=== PATIENT | male | born 1995 ===

== ENCOUNTER 2017-01-08 19:54 | Emergency (ER) | payer MEDICAID ==
[2017-01-08] MEDS ORDERED: Sodium Chloride 0.9% 1,000 ML IV ONE (20:42)
[2017-01-08] MEDS ORDERED: Sodium Chloride 0.9% 1,000 ML ONE (20:53)
[2017-01-08 20:57] LABS: BASO % 0.1 % (0.0-2.0); EOS # 0.1 K/uL (0.0-0.7); EOS % 0.8 % (0.0-4.0); HEMATOCRIT 44.7 % (35.0-51.0); LYMPH # 1.1 K/uL (1.0-4.3); LYMPH % 7.3 % (20.0-40.0); MEAN CELL VOLUME 87.1 fL (80.0-94.0); MEAN CORPUSCULAR HEMOGLOBIN 28.9 pg (27.0-31.0); MEAN CORPUSCULAR HGB CONC 33.1 g/dL (33.0-37.0); MEAN PLATELET VOLUME 8.6 fL (7.2-11.7); MONO # 0.9 K/uL (0.0-0.8); MONO % 5.8 % (0.0-10.0); PLATELET COUNT 231 K/uL (130-400); RED CELL DISTRIBUTION WIDTH 13.7 % (11.5-14.5); WHITE BLOOD COUNT 14.8 K/uL (4.8-10.8)
[2017-01-08 20:59] LABS: CHLORIDE 98 mmol/L (98-107); POTASSIUM 4.4 mmol/L (3.6-5.2); SODIUM 137 mmol/L (132-148)
[2017-01-08 21:01] LABS: BILIRUBIN,TOTAL 0.8 mg/dL (0.2-1.3); CARBON DIOXIDE 22 mmol/L (22-30); GFR AFRICAN-AMERICAN > 60
[2017-01-08 21:02] LABS: ALB/GLOB RATIO 1.5 (1.0-2.1); ALKALINE PHOSPHATASE 88 U/L (38-126); ALT/SGPT 27 U/L (21-72); AST/SGOT 40 U/L (17-59); BLOOD UREA NITROGEN 22 mg/dL (9-20); GLUCOSE,RANDOM 92 mg/dL (75-110); TOTAL PROTEIN 7.9 g/dL (6.3-8.3)
[2017-01-08 21:21] LABS: NEUTROPHIL 87 % (50-75); TOTAL CELLS COUNTED 100
--- NOTE | 2017-01-08 21:29 | C.PDOC ---
History Of Present Illness 21 y/o male presents to the ED with complains of abdominal cramping, vomiting and diarrhea since this afternoon. Pt states he ate eritrean food for lunch today and symptoms began soon after. Pt reports 3 episodes of vomiting and diarrhea. Pt currently has no abdominal pain or nausea. He denies fever, dysuria, hematuria, dysuria/hematuria. Patient denies PMHx. Time Seen by Provider: 01/08/17 20:24 Chief Complaint (Nursing): GI Problem History Per: Patient History/Exam Limitations: no limitations Onset/Duration Of Symptoms: Hrs Current Symptoms Are (Timing): Better Context: Food Severity: Mild Location Of Pain/Discomfort: Diffuse Radiation Of Pain To:: None Quality Of Discomfort: Cramping Associated Symptoms: Nausea, Vomiting, Diarrhea. denies: Fever, Chills, Urinary Symptoms Exacerbating Factors: Food Alleviating Factors: None Past Medical History Reviewed: Historical Data, Nursing Documentation, Vital Signs Vital Signs: Last Vital Signs Temp 98.7 F 01/08/17 22:22 Pulse 99 H 01/08/17 22:22 Resp 18 01/08/17 22:22 BP 138/76 01/08/17 22:22 Pulse Ox 100 01/08/17 22:22 - Medical History PMH: No Chronic Diseases Family History: States: No Known Family Hx - Social History Hx Alcohol Use: No Hx Substance Use: No Review Of Systems Except As Marked, All Systems Reviewed And Found Negative. Constitutional: Negative for: Fever, Chills Cardiovascular: Negative for: Chest Pain, Palpitations Respiratory: Negative for: Cough, Shortness of Breath Gastrointestinal: Positive for: Nausea, Vomiting, Abdominal Pain, Diarrhea Genitourinary: Negative for: Dysuria, Hematuria Skin: Negative for: Rash Physical Exam - Physical Exam Appears: Well, Non-toxic, No Acute Distress Skin: Warm, Dry, No Rash Head: Normacephalic Eye(s): bilateral: Normal Inspection Oral Mucosa: Moist Cardiovascular: Rhythm Regular Respiratory: Normal Breath Sounds, No Rales, No Rhonchi, No Wheezing Gastrointestinal/Abdominal: Normal Exam, Bowel Sounds, Soft, No Tenderness, No Guarding, No Rebound Extremity: Bilateral: Atraumatic Neurological/Psych: Oriented x3 ED Course And Treatment - Laboratory Results Result Diagrams: 01/08/17 20:51 01/08/17 20:51 O2 Sat by Pulse Oximetry: 98 (on room air) Pulse Ox Interpretation: Normal Progress Note: Plan: Blood work ordered and reviewed. Patient given IV NS bolus. Reevaluation Time: 22:10 Reassessment Condition: Improved (Patient reassessed, is resting comfortably, has no current pain/distress. On exam, abdomen is soft and nontender. Patient is requesting to be discharged home, was given Rxs for Zofran and Bentyl + work note. He was instructed to follow up with PMD/clinic in 1-2 days. He understands he should return to ED if symptoms worsen.) Disposition Counseled Patient/Family Regarding: Studies Performed, Diagnosis, Need For Followup, Rx Given - Disposition Referrals: Unruly Chapa Jr., MD [Medical Doctor] - Disposition: HOME/ ROUTINE Disposition Time: 22:10 Condition: STABLE Additional Instructions: SEGUIMIENTO CON SOSA MDICO EN 1-2 DAVIS USE MEDICAMENTOS WAYNE SE NECESITAN PARA LA NAUSEA Y EL CRAMPING INTESTINAL DEVUELVA A LA WINDY DE EMERGENCIA SI LOS SNTOMAS EMPEORARAN Prescriptions: Dicyclomine [Bentyl] 20 mg PO Q6 PRN #12 tab PRN Reason: ABDOMINAL CRAMPING Ondansetron [Zofran Odt] 4 mg PO Q8 PRN #10 odt PRN Reason: Nausea/Vomiting Instructions: Acute Nausea and Vomiting (ED) Forms: Work Excuse Print Language: YORUBA - POA Present On Arrival: None - Clinical Impression Clinical Impression: Nausea & vomiting, Diarrhea - Scribe Statement The provider has reviewed the documentation as recorded by the Kenneth Greene Provider Attestation: All medical record entries made by the Kenneth were at my direction and personally dictated by me. I have reviewed the chart and agree that the record accurately reflects my personal performance of the history, physical exam, medical decision making, and the department course for this patient. I have also personally directed, reviewed, and agree with the discharge instructions and disposition.
[2017-01-08 22:22] VITALS: BP 138/76; PULSE 99; RESP 18; TEMP 98.7
[2017-01-15 14:06] VITALS: O2SAT 98
== END 2017-01-08 22:23 | disposition home or self-care (01) ==
LOC: C.ER 19:54
DX: R11.2 Nausea with vomiting, unspecified (principal); R19.7 Diarrhea, unspecified
CPT/HCPCS: 80053; 83690; 85025; 96360; 99284; J7040

== ENCOUNTER 2017-05-23 21:14 | Emergency (ER) | payer MEDICAID ==
[2017-05-23 21:39] VITALS: BP 124/79; PULSE 78; RESP 20; TEMP 98.4; O2SAT 99
--- NOTE | 2017-05-23 22:36 | C.PDOC ---
History Of Present Illness 22 y/o male presents to the ER c/o generalized itchy rash for 3 days. Patient notes recently moved into a friends house and noted the rash started 2 weeks later. Patient is with his girlfriend and his girlfriend's father in the ER, all having the same complaints. Patient reports taking Claritin with no relief. Denies fever, SOB, difficulty breathing, difficulty swallowing, no known allergens or any other complaints. Time Seen by Provider: 05/23/17 22:03 Chief Complaint (Nursing): Abnormal Skin Integrity History Per: Patient History/Exam Limitations: no limitations Onset/Duration Of Symptoms: Days (3) Current Symptoms Are (Timing): Still Present Quality Of Symptoms: Itching Severity: Mild Recent travel outside of the [place]: No Additional History Per: Patient Past Medical History Reviewed: Historical Data, Nursing Documentation, Vital Signs Vital Signs: Last Vital Signs Temp 98.4 F 05/23/17 21:33 Pulse 78 05/23/17 21:33 Resp 20 05/23/17 21:33 BP 124/79 05/23/17 21:33 Pulse Ox 99 05/23/17 23:32 Family History: States: Unknown Family Hx - Social History Hx Alcohol Use: No Hx Substance Use: No - Immunization History Hx Tetanus Toxoid Vaccination: No Hx Influenza Vaccination: No Hx Pneumococcal Vaccination: No Review Of Systems Except As Marked, All Systems Reviewed And Found Negative. Constitutional: Negative for: Fever, Chills ENT: Negative for: Nose Discharge, Nose Congestion, Mouth Swelling, Throat Pain , Throat Swelling Respiratory: Negative for: Cough, Shortness of Breath Gastrointestinal: Negative for: Nausea, Vomiting, Diarrhea Skin: Positive for: Rash (Itchy rash, generalized) Physical Exam - Physical Exam Appears: Well, Non-toxic, No Acute Distress Skin: Warm, Dry, Rash ((+) mulitple 1 cm papuples with central bite like region primarily on extremities, sparsely on torso. No vesicles. No discharge. No warmth or signs of infection.) Eye(s): bilateral: Normal Inspection, PERRL, EOMI Nose: Normal Throat: Normal Neck: Normal Cardiovascular: Rhythm Regular Respiratory: Normal Breath Sounds Gastrointestinal/Abdominal: Normal Exam Back: Normal Inspection Extremity: Normal ROM ED Course And Treatment O2 Sat by Pulse Oximetry: 99 (RA) Pulse Ox Interpretation: Normal Progress Note: Discused with pt prevention. Patient is resting comfortably, tolerating PO, has no shortness of breath, has no intra-oral swelling, no stridor. Patient was advised to avoid potential allergens, and to follow up with physician in 1-2 days. Disposition - Disposition Disposition: HOME/ ROUTINE Disposition Time: 22:30 Condition: STABLE Additional Instructions: Vaya a tejada mdico o la clnica en 2-5 capps sin falta, para mas evaluacin. [place] los medicamentos cyndi indicado. Volver a la kendall de emergencia en cualquier momento si los sntomas persisten o empeoran. Prescriptions: DiphenhydrAMINE [Benadryl] 25 mg PO Q6 #20 cap Hydrocortisone 1% Cream [Cortizone 1% Cream] 1 appl TP TID #1 tube Instructions: Acute Rash (ED) Forms: [employer] (Hungarian) Print Language: SETSWANA - Clinical Impression Clinical Impression: Rash - Scribe Statement The provider has reviewed the documentation as recorded by the Scribe Chrystal hillman All medical record entries made by the Scribe were at my direction and personally dictated by me. I have reviewed the chart and agree that the record accurately reflects my personal performance of the history, physical exam, medical decision making, and the department course for this patient. I have also personally directed, reviewed, and agree with the discharge instructions and disposition.
== END 2017-05-23 23:04 | disposition home or self-care (01) ==
LOC: C.ER 21:14
DX: R21 Rash and other nonspecific skin eruption (principal)

== ENCOUNTER 2017-11-11 19:16 | Emergency (ER) | payer MEDICAID ==
[2017-11-11 21:04] VITALS: BP 133/76; PULSE 100; RESP 20; TEMP 98.5; O2SAT 100
[2017-11-11] MEDS ORDERED: Dexamethasone 4 mg/1 ml ONE (22:30)
--- NOTE | 2017-11-11 23:01 | C.PDOC ---
History Of Present Illness 22 year old male presents to the ER with a complaint of subjective fever, body aches, and sore throat for the past 3 days. Denies sick contact or recent travel. Time Seen by Provider: 11/11/17 21:48 Chief Complaint (Nursing): Flu-like Symptoms History Per: Patient History/Exam Limitations: no limitations Onset/Duration Of Symptoms: Days Current Symptoms Are (Timing): Still Present Location Of Pain: Throat Sick Contacts (Context): None Associated Symptoms: Fever (Subjective), Sore Throat, Myalgias Ear Symptoms: Bilateral: None Recent travel outside of the [place]: No Past Medical History Reviewed: Historical Data, Nursing Documentation, Vital Signs Vital Signs: Last Vital Signs Temp 98.5 F 11/11/17 21:02 Pulse 100 H 11/11/17 21:02 Resp 20 11/11/17 21:02 BP 133/76 11/11/17 21:02 Pulse Ox 100 11/11/17 23:06 Family History: States: Unknown Family Hx - Social History Hx Alcohol Use: No Hx Substance Use: No - Immunization History Hx Tetanus Toxoid Vaccination: No Hx Influenza Vaccination: No Hx Pneumococcal Vaccination: No Review Of Systems Constitutional: Positive for: Fever (Subjective) ENT: Positive for: Throat Pain. Negative for: Nose Discharge, Nose Congestion Respiratory: Negative for: Cough, Wheezing Musculoskeletal: Positive for: Other (Body aches) Physical Exam - Physical Exam Appears: Non-toxic, No Acute Distress Skin: Normal Color, Warm, Dry Head: Atraumatic, Normacephalic Eye(s): bilateral: Normal Inspection Ear(s): Bilateral: Normal Nose: Normal Oral Mucosa: Moist Throat: Other (Enlarged tonsils) Neck: Normal, Supple Chest: Symmetrical, No Tenderness Cardiovascular: Rhythm Regular Respiratory: Normal Breath Sounds, No Rales, No Rhonchi, No Wheezing Neurological/Psych: Oriented x3, Normal Speech ED Course And Treatment O2 Sat by Pulse Oximetry: 100 (Room air) Pulse Ox Interpretation: Normal Progress Note: Decadron and toradol administered. Patient reports improvement of symptoms, will started on amoxicillin, discharge home with Rx, and instruct to follow up with PMD for further evaluation. Disposition - Disposition Referrals: Shilo Fuentes MD [Staff Provider] - Disposition: HOME/ ROUTINE Disposition Time: 23:05 Condition: GOOD Additional Instructions: Follow up with your PMD within 1-2 days. Return to ED if feel worse. 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 - Scribe Statement The provider has reviewed the documentation as recorded by the Scribe Maurice Stanley All medical record entries made by the Timothyibcarolee were at my direction and personally dictated by me. I have reviewed the chart and agree that the record accurately reflects my personal performance of the history, physical exam, medical decision making, and the department course for this patient. I have also personally directed, reviewed, and agree with the discharge instructions and disposition.
== END 2017-11-11 23:13 | disposition home or self-care (01) ==
LOC: C.ER 19:16
DX: J02.9 Acute pharyngitis, unspecified (principal)
CPT/HCPCS: 96372; 99282; J1100; J1885